=== PATIENT | female | born 1975 | race Caucasian/White ===

== ENCOUNTER 2024-07-21 13:18 | Emergency (ER) | payer BC ==
[2024-07-21] MEDS: Sodium Chloride 0.9% 1,000 ML IV SCH (15:14)
[2024-07-21] MEDS: Propofol 200 MG/20 ML SDV IVPUSH ONE (15:14)
[2024-07-21 16:33] VITALS: BP 100/69; PULSE 73
== END 2024-07-21 16:25 | disposition home or self-care (01) ==
LOC: JD.ED 13:18
DX: S52.602A Unspecified fracture of lower end of left ulna, initial encounter for closed fracture (principal); S59.202A Unspecified physeal fracture of lower end of radius, left arm, initial encounter for closed fracture; Z88.0 Allergy status to penicillin; Z79.899 Other long term (current) drug therapy; W18.39XA Other fall on same level, initial encounter; Y93.89 Activity, other specified
CPT/HCPCS: 25605; 73100-26-LT; 73100-LT; 73110-26-LT; 73110-LT; 96360; 99152; 99283-25; 99284; J2704; J7030